=== PATIENT | male | born 1960 ===

== ENCOUNTER 2018-05-02 06:10 | Emergency (ER) | payer OTHER ==
[2018-05-02] MEDS ORDERED: NACL 0.9% 1000 ML 1,000 ML IV ONE (06:23)
[2018-05-02 06:57] LABS: Basophils % (Auto) 0.3 % (0.0-1.8); Eosinophils # (Auto) 0.1 K/mm3 (0.0-0.4); Eosinophils % (Auto) 0.8 % (0.0-4.3); Hematocrit 44.8 % (35.5-45.6); Hemoglobin 15.1 gm/dl (11.8-15.2); Lymphocytes # (Auto) 2.2 K/mm3 (1.2-5.4); Lymphocytes % (Auto) 21.4 % (13.4-35.0); Mean Corpuscular HGB Conc 34 % (32-34); Mean Corpuscular Hemoglobin 29 pg (28-32); Mean Corpuscular Volume 87 fl (84-94); Monocytes # (Auto) 1.5 K/mm3 (0.0-0.8); Monocytes % (Auto) 14.6 % (0.0-7.3); Platelet Count 243 K/mm3 (140-440); Red Blood Count 5.17 M/mm3 (3.65-5.03); Red Cell Distribution Width 14.1 % (13.2-15.2)
[2018-05-02 07:25] LABS: Calcium 9.1 mg/dL (8.4-10.2)
--- NOTE | 2018-05-02 10:39 | Emergency Department Report ---
HPI - General Chief Complaint: Abdominal Pain Time Seen by Provider: 05/02/18 10:17 - HPI HPI: 58-year-old male presents to the emergency department with complaint of right upper quadrant and right upper flank pain that has been going on for the past 3 days. He took some Advil with some transient and temporary relief. He denies any nausea, vomiting, fever, dysuria or any other problems with bowel or bladder. He denies any past medical history. No recent travel or sick contacts at home. His pain does not appear to be affected by eating or drinking. ED Past Medical Hx - Past Medical History Previous Medical History?: No - Surgical History Past Surgical History?: No - Social History Smoking Status: Never Smoker Substance Use Type: Alcohol - Medications Home Medications: Home Medications Medication Instructions Recorded Confirmed Last Taken Type Ciprofloxacin HCl [Cipro] 500 mg PO BID #10 tablet 05/02/18 Unknown Rx HYDROcodone/APAP 5-325 [[place] 1 each PO Q6HR PRN #10 tablet 05/02/18 Unknown Rx 5/325] Ibuprofen 800 mg PO TID PRN #20 tablet 05/02/18 Unknown Rx Tamsulosin HCl [Flomax] 0.4 mg PO QDAY #5 cap.er.24h 05/02/18 Unknown Rx ED Review of Systems ROS: Stated complaint: ABD PAIN Other details as noted in HPI Comment: All other systems reviewed and negative Constitutional: denies: chills, fever Eyes: denies: eye pain, eye discharge, vision change ENT: denies: ear pain, throat pain Respiratory: denies: cough, shortness of breath, wheezing Cardiovascular: denies: chest pain, palpitations Gastrointestinal: abdominal pain. denies: nausea, vomiting Genitourinary: denies: urgency, dysuria Musculoskeletal: denies: back pain, joint swelling, arthralgia Skin: denies: rash, lesions Neurological: denies: headache, weakness, paresthesias Physical Exam - Physical Exam Vital Signs: Vital Signs 05/02/18 06:20 Temperature 99.0 F Pulse Rate 65 Respiratory 16 Rate Blood Pressure 167/107 O2 Sat by Pulse 99 Oximetry ED Course Vital Signs 05/02/18 06:20 Temperature 99.0 F Pulse Rate 65 Respiratory 16 Rate Blood Pressure 167/107 O2 Sat by Pulse 99 Oximetry ED Medical Decision Making - Lab Data Result diagrams: 05/02/18 06:42 05/02/18 06:39 - Radiology Data Radiology results: report reviewed PROCEDURE: US ABDOMEN COMPLETE TECHNIQUE: Real-time sonography in multiple planes of the abdomen was performed with image documentation. CPT 86491 HISTORY: RUQ and right flank pain COMPARISON: No prior studies are available for comparison. FINDINGS: Liver: Mild diffuse increased echogenicity can be seen with fatty infiltration.. Gallbladder: Fluid filled. No gallstones, wall thickening, pericholecystic fluid, or sonographic Gonsales's sign. Intrahepatic bile ducts: Normal caliber . Extrahepatic bile ducts: Not visualized due to overlying bowel gas. Pancreas: Not fully visualized. Aorta: Visualized portions appear normal. IVC: Visualized portions appear normal. RIGHT kidney: Normal echotexture. No focal renal mass, calculus, or hydronephrosis. Length: 11.5cm. LEFT kidney: Normal echotexture. No focal renal mass, calculus, or hydronephrosis . Length: 11.5cm. Spleen: Normal size and echotexture. No focal lesions. Intraperitoneal fluid: None . Other: None . IMPRESSION: No sonographic evidence of cholelithiasis or acute cholecystitis. Common bile duct is not visualized or evaluated due to overlying bowel gas. Possible fatty infiltration of the liver Transcribed By: [facility] Dictated By: JOSE L AGUILAR M.D. Electronically Authenticated By: JOSE L AGUILAR M.D. Signed Date/Time: 05/02/[address] of the abdomen and pelvis without contrast shows a 3.3 mm right UVJ stone with mild right-sided hydronephrosis. 3 mm nonobstructive right lower pole renal stone. Ill-defined posterior right ileum and right iliac wing sclerosis that could show a metabolically active process such as metastasis and a bone scan as recommended. 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 - Medical Decision Making 58-year-old male presents to the emergency department with right-sided abdominal and flank pain. At first, based on the area of his location, there was concern for cholelithiasis and an ultrasound was done that did not show any cholelithiasis, cholecystitis or any other acute processes. A CT scan of the abdomen and pelvis was then done that showed etiology of his symptoms which is a 3.3 mm right UVJ stone. Patient was given some pain medication and anti- inflammatory with some improvement. Labs were mostly unremarkable. He will go home with pain medication, Flomax, antibiotics and a strainer. He was given referrals for primary care and urology. He will return to the ER with any worsening of his symptoms or any acute distress. Vital signs stable throughout his ED course. - Differential Diagnosis nephrolithiasis, cholelithiasis, cholecystitis, pancreatitis Critical Care Time: No Critical care attestation.: If time is entered above; I have spent that time in minutes in the direct care of this critically ill patient, excluding procedure time. ED Disposition Clinical Impression: Nephrolithiasis, Renal colic on right side, Flank pain Hypertension Qualifiers: Hypertension type: essential hypertension Qualified Code(s): I10 - Essential ( primary) hypertension Disposition: - TO HOME OR SELFCARE Is pt being admited?: No Condition: Stable Instructions: Kidney Stones (ED), Renal Colic (ED), How to Strain Your Urine ( ED), Hypertension (ED) Additional Instructions: Please follow up with a primary care physician in the next few days. I have also given you a referral for a local urologist, Dr. James, to follow up regarding your kidney stones. Return to the emergency Department with any worsening of your symptoms, development of fever or intractable vomiting, or with any acute distress. Take the antibiotics as prescribed. You have been prescribed a medication that is sedating and therefore should not be taken prior to driving, working, and responsible for children and in no way should be mixed with alcohol of any quantity. Prescriptions: Ciprofloxacin HCl [Cipro] 500 mg PO BID #10 tablet HYDROcodone/APAP 5-325 [[place] 5/325] 1 each PO Q6HR PRN #10 tablet PRN Reason: Pain Ibuprofen 800 mg PO TID PRN #20 tablet PRN Reason: Pain , Severe (7-10) Tamsulosin HCl [Flomax] 0.4 mg PO QDAY #5 cap.er.24h Referrals: ADÁN SPANN MD [Primary Care Provider] - 3-5 Days HAYDEN OCAMPO MD [Staff Physician] - 3-5 Days JOCELYNN JAMES MD [Staff Physician] - 3-5 Days Time of Disposition: 16:10
[2018-05-02 10:42] LABS: Bilirubin,Urine NEG (Negative); Blood,Urine SM (Negative); Color,Urine Yellow (Yellow); Mucus,Urine FEW /HPF
--- NOTE | 2018-05-02 13:22 | Ultrasound Report ---
FINAL REPORT PROCEDURE: US ABDOMEN COMPLETE TECHNIQUE: Real-time sonography in multiple planes of the abdomen was performed with image documentation. CPT 52448 HISTORY: RUQ and right flank pain COMPARISON: No prior studies are available for comparison. FINDINGS: Liver: Mild diffuse increased echogenicity can be seen with fatty infiltration.. Gallbladder: Fluid filled. No gallstones, wall thickening, pericholecystic fluid, or sonographic Gonsales's sign. Intrahepatic bile ducts: Normal caliber . Extrahepatic bile ducts: Not visualized due to overlying bowel gas. Pancreas: Not fully visualized. Aorta: Visualized portions appear normal. IVC: Visualized portions appear normal. RIGHT kidney: Normal echotexture. No focal renal mass, calculus, or hydronephrosis. Length: 11.5cm. LEFT kidney: Normal echotexture. No focal renal mass, calculus, or hydronephrosis . Length: 11.5cm. Spleen: Normal size and echotexture. No focal lesions. Intraperitoneal fluid: None . Other: None . IMPRESSION: No sonographic evidence of cholelithiasis or acute cholecystitis. Common bile duct is not visualized or evaluated due to overlying bowel gas. Possible fatty infiltration of the liver
[2018-05-02] MEDS ORDERED: NORCO 5/325 PO ONE (13:27)
[2018-05-02] MEDS ORDERED: TORADOL IM ONE (13:28)
--- NOTE | 2018-05-02 16:02 | Cat Scan Report ---
FINAL REPORT EXAM: CT ABDOMEN PELVIS WO CON HISTORY: right flank pain TECHNIQUE: Axial images were performed from the lung bases to the pubic symphysis. Multiplanar reformats are performed on the acquisition scanner. Total exam DLP is not noted. Comparison: Abdominal ultrasound same day demonstrating mildly fatty liver. Mild fullness of the right renal pelvis FINDINGS: Mild hypoventilatory changes in both lung bases. Diffusely hypodense liver compatible with fatty infiltration. Liver is slightly heterogeneous suggesting geographic fat. Unremarkable unenhanced spleen, pancreas, bilateral adrenal glands and left kidney. There is mild right hydroureteronephrosis due to obstructing 3.3 millimeter right UVJ stone. There is mild periureteral stranding. There is a nonobstructive right lower pole [place] 3 millimeter stone. No other stones are identified. Nonobstructive bowel pattern. Moderate fecal retention. Normal appendix right lower quadrant. Urinary bladder is minimally distended. Prostate is not enlarged. Central prostatic calcification. Small left inguinal hernia contains fat. Degenerative change lumbosacral spine. No compression fracture. No free air or free fluid. Right spermatic cord phlebolith. Partial ankylosis bilateral posterior SI joints. Ankylosis right anterior SI joint. Heterogeneous sclerosis posterior right ilium and right iliac wing. IMPRESSION: 3.3 millimeter obstructing right UVJ stone causes mild right hydroureteronephrosis. Nonobstructive 3 millimeter right lower pole caliceal stone. Ill-defined sclerosis of the posterior the right ilium and right iliac wing. These findings are nonspecific but may represent metabolically active lesions including metastatic disease. Consider bone scan. 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 Right sacral sclerotic focal lesion likely represents bone island.
[2018-05-02 16:58] VITALS: BP 142/90
== END 2018-05-02 16:10 | disposition home or self-care (01) ==
LOC: ED 06:10
DX: N20.0 Calculus of kidney (principal); I10 Essential (primary) hypertension
CPT/HCPCS: 36415; 74176; 76700; 80053; 81001; 83690; 85025; 96372; 99284; J1885